=== PATIENT | male | born 2000 | race Caucasian/White ===

== ENCOUNTER 2023-03-27 13:10 | Outpatient (AMB) | payer OTHER, SELFPAY ==
--- NOTE | 2023-03-27 13:32 | AM.OFFWIN_ITS ---
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 Intake Note: pt is here for c.o left ear pain possible cyst Patient Tobacco Use Status: Never used Tobacco Allergies No Known Allergies [No Known Allergies*] Allergy (Verified 03/27/23 13:33) Do you need a note to return to daycare/school/sports/work: Yes HPI HPI Comments History of Present Illness Details Pt presents with L earlobe abscess has been drained in past Pain 08/12 with palpation Ongoing for a few days No other complaints No improving factors PFSH Social History Patient Tobacco Use Status: Never used Tobacco Review of Systems Const Denies chills, Denies fatigue and Denies fever(s) Eyes Denies blurry vision ENT Denies otalgia, Denies nasal discharge, Denies nose pain and Denies sore throat Resp Denies cough Skin/Breast Reports lesions and Reports erythema Endo Denies fatigue Physical Exam Vital Signs: Last Vital Signs Temp 97.9 F 03/27/23 13:53 Pulse 80 03/27/23 13:53 BP 120/76 03/27/23 13:53 Pulse Ox 98 03/27/23 13:53 BMI result Body Mass Index 27.9 General: Non-toxic, NAD. Speaking full sentences. Skin: Warm dry throughout L posterior earlobe + edematous erythematous fluctuant region. No discharge. minimal tenderness to palpation Respiratory: No respiratory distress MSK: Full ROM extremities. Neurology: A/O. No aphasia or facial droop. Gait without abnormality Psych: Good mood and affect Office Procedures Incision and Drainage Incision and drainage performed by: Caridad Norman Informed consent given: Yes Consent signed: No (verbal) Time out checklist: patient, procedure, site marked/identified, positioning of patient (supine), supplies available (lidocaine, 25G and 21G, syringe), allergies confirmed and team agrees on procedure Time out staff in room: No (solo in room) Time out date: 03/27/23 Time out time: 14:20 Location: L posterior earlobe Anesthesia: local Incision with: needle Drainage quality: purulent Probed cavity: No Culture taken: No Lesion: erythema, drainage and fluctuance Dressing: none Patient tolerated procedure: well Complications: No Additional details: verbal consent obtained. L posterior earlobe cleaned with alcohol. 25G needle used to inject approx 1cc lidocaine into region. Pt tolerated well. 21G needle used to aspirate with moderate amount thick white pus expressed. Palpated region with minimal additional discharge. Area cleaned with alcohol and gauze. Pt tolerated well without complication Assessment & Plan Assessment & Plan (1) Abscess: Code(s): L02.91 - Cutaneous abscess, unspecified Plan: Patient seen and evaluated. See proceedure note Bactrim with food; no alcohol F/U with PCP/dermatology Patient gave verbal understanding and had no additional questions or concerns at time of discharge All questions answered Medications: New sulfamethoxazole-trimethoprim 800-160 mg (Bactrim DS) 1 tab PO BID 14 tabs 0RF L02.91 - Cutaneous abscess, unspecified Coding Level of Care Code New Pt Level 3 (59227) Diagnoses Abscess L02.91
[2023-03-27 13:53] VITALS: BP 120/76; PULSE 80; TEMP 36.6; O2SAT 98; BMI 27.9
--- NOTE | 2023-03-27 14:07 | AM.OFFVISNUR ---
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
== END 2023-03-27 14:39 | disposition home or self-care (01) ==
PROVIDERS: PCP Internal Medicine; Visit Provider Physician Assistant
DX: L02.91 Cutaneous abscess, unspecified (principal)
CPT/HCPCS: 99051; 99203

== ENCOUNTER 2023-04-20 12:44 | Outpatient (AMB) | payer OTHER, SELFPAY ==
[2023-04-20 13:05] VITALS: BP 118/72; PULSE 82; O2SAT 99; BMI 27.5
--- NOTE | 2023-04-20 13:05 | MHC.PC.OV ---
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 Allergies No Known Allergies [No Known Allergies*] Allergy (Verified 04/20/23 13:07) Medication List - Last Reconciled 04/20/23 by Jeannette Vences MD No Known Home Meds Tobacco use date assessed: 04/20/23 Dental Screening Dental Screen Date: 04/20/23 Did you have a dental visit in the last 12 months?: Yes Did you have a dental problem in the last 6 months where you did not have access to dental care?: No Was dental information given to patient?: 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 Does smoke marijuana He has a therapist and he can book the appointment whenever he wants it tells me There is a family history of diabetes in mother Lab order placed to be done today. Patient offer no other complaints [facility] Social History Housing: Apartment Patient Tobacco Use Status: Never used Tobacco e-Cigarette/Vaping Use: Never Used service: No Current occupational status: employed Cognitive needs: No Hearing needs: No Vision needs: No Questionnaire PHQ-9 Over the last 2 weeks, how often have you been bothered by any of the following problems? 1. Little interest or pleasure in doing things: several days 2. Feeling down, depressed, or hopeless: more than half the days 3. Trouble falling or staying asleep, or sleeping too much: more than half the days 4. Feeling tired or having little energy: more than half the days 5. Poor appetite or overeating: several days 6. Feeling bad about yourself - or that you are a failure or have let yourself or your family down: nearly every day 7. Trouble concentrating on things, such as reading the newspaper or watching television: several days 8. Moving or speaking so slowly that other people could have noticed. Or the opposite - being so fidgety or restless that you have been moving around a lot more than usual: several days 9. Thoughts that you would be better off or of hurting yourself in some way: several days Total score: 14 Depression Screening Interpretation: Positive Depression Screening Follow-up: Existing condition and Declines treatment Depression Screening Done: Yes 09763 - PHQ-9 Billing: Yes Source: Developed by Drs. Jerrell Miranda, Laya Houston, Tyson Perez and colleagues, with an educational eva from [employer]. Thrive Questionnaire Date Thrive assessed: 04/20/23 I am a: Patient What is your living situation today?: I have a steady place to live Within the past 12 months, did the food you bought not last and you didn't have the money to get more?: Never true Within the past 12 months, did you worry whether your food would run out before you got money to buy more?: Never true Do you have trouble paying for medicines?: No Do you have trouble getting transportation to medical appointments?: No Do you have trouble paying your heating and electricity bill?: No Do you have trouble taking care of your child, family member or friend?: No Do you have trouble with day-to-day activities such as bathing, preparing meals, shopping, managing finances, etc.?: No Are you currently unemployed and looking for a job?: No Are you interested in more education?: Yes Please select the resources that you would like help with: None AUDIT C Alcohol Use Questionnaire (AUDIT-C) 1. How often do you have a drink containing alcohol?: Never 3. How often do you have six or more drinks on one occasion?: Never Total Score: 0 Score Reviewed/Action Taken: Yes ZABRINA-7 AMB Questionnaire ZABRINA-7 Date ZABRINA - 7 assessed: 04/20/23 Feeling nervous, anxious, or on edge: 2 = More than half the days Not being able to stop or control worryin = More than half the days Worrying too much about different things: 2 = More than half the days Trouble relaxin = More than half the days Being so restless that it is hard to sit still: 1 = Several days Becoming easily annoyed or irritable: 1 = Several days Feeling afraid as if something awful might happen: 1 = Several days Total ZABRINA-7 score (0-4 normal; 5-9 mild; 10-14 moderate; 15-21 severe): 11 Source: Developed by Drs. Jerrell Miranda, Laya Houston, Tyson Perez and colleagues, with an educational eva from [employer]. ZABRINA-7 Assessment Billing ZABRINA-7 Assessment Tool: ZABRINA-7 Assessment 22510 Review of Systems Const Denies chills, Denies fever(s) and Denies headache(s) Eyes Denies blurry vision ENT Denies headache(s), Denies nasal discharge, Denies nasal obstruction, Denies odynophagia and Denies sinus pain Card Denies chest pain at rest and Denies chest pain with activity Resp Denies cough and Denies hemoptysis GI Denies diarrhea, Denies odynophagia, Denies vomiting and Denies hematemesis Reports as per HPI Musc Denies abnormal gait Skin/Breast Reports as per HPI Neuro Denies Neuro-related abnormal movements, Denies Abnormal speech present, Denies abnormal gait, Denies headache(s) and Denies Sensory deficit (Neuro) Psych Denies mood swings and Denies paranoia Endo Reports as per HPI Luis/Lymph Reports as per HPI Aller/Immun Reports as per HPI Physical exam (Primary Care) Vital Signs: Last Vital Signs Pulse 82 04/20/23 13:05 BP 118/72 04/20/23 13:05 Pulse Ox 99 04/20/23 13:05 Oxygen Delivery Method Room Air 04/20/23 13:05 BMI result Body Mass Index 27.5 Tobacco/Smoking Status: Tobacco use Status Tobacco use date assessed 04/20/23 04/20/23 13:09 Patient Tobacco Use Status Never used Tobacco 04/20/23 13:08 e-Cigarette/Vaping Use Never Used 04/20/23 13:09 PHQ-9: PHQ-9 Score PHQ-9: Total score 14 04/20/23 13:24 Depression Screening Interpretation: Positive Depression Screening Follow-up: Existing condition and Declines treatment Thrive Assessment: Date of Thrive Assessment Date Thrive assessed 04/20/23 04/20/23 13:09 Const General: cooperative, comfortable and no acute distress Orientation/consciousness: patient oriented x3 [facility] Head: Yes normocephalic and Yes atraumatic Eyes General: appearance normal, both eyes and all related structures Pupils: Equal, round and reactive pupils present EOM: EOMs intact bilaterally Neck Neck: Yes supple and No lymphadenopathy Thyroid: Thyroid normal Lymphatic: no lymphadenopathy noted Resp Effort & Inspection: normal respiratory effort and able to speak in complete sentences Auscultation: clear to auscultation bilaterally Cardio Heart sounds: S1 normal heart sound present and S2 normal heart sound present GI Palpation (GI): Soft to palpation and nontender Auscultation: normal bowel sounds General: Yes no CVA tenderness Back/Spine/Pelvis Back: no CVA tenderness Skin General skin exam: elasticity normal and turgor normal Neuro General: patient oriented x3 and gait normal Cranial nerves: Yes Equal, round and reactive pupils present Speech: No Abnormal speech present Sensory Exam: No Sensory deficit (Neuro) Coordination: tandem gait normal and Romberg test negative Extrem General: Yes normal exam except as noted and No edema Assessment and Plan Assessment & Plan (1) Encounter for general adult medical examination with abnormal findings: Code(s): Z00.01 - Encounter for general adult medical examination with abnormal findings (2) Anxiety, generalized: Code(s): F41.1 - Generalized anxiety disorder (3) Major depression, recurrent: Code(s): F33.9 - Major depressive disorder, recurrent, unspecified Qualifiers: Active/Remission status: in partial remission Qualified Code(s): F33.41 - Major depressive disorder, recurrent, in partial remission (4) Family history of diabetes mellitus: Code(s): Z83.3 - Family history of diabetes mellitus (5) Marijuana smoker: Code(s): F12.90 - Cannabis use, unspecified, uncomplicated Plan 22-year-old male came in for establish care and physical exam Patient have a history of anxiety and depression, he was on Lexapro at 1 time, but then he stops because he does not want to take any medication Patient is in college and feels that it is because of the stress he feels this way. Does smoke marijuana He has a therapist and he can book the appointment whenever he wants it tells me There is a family history of diabetes in mother Lab order placed to be done today. Patient offer no other complaints Orders: Orders Complete Blood Count Auto Diff Today F12.90 - Cannabis use, unspecified, uncomplicated, F33.9 - Major depressive disorder, recurrent, unspecified, F41.1 - Generalized anxiety disorder, Z00.01 - Encounter for general adult medical examination with abnormal findings, Z83.3 - Family history of diabetes mellitus Comprehensive [place]. Panel Fast Today F33.9 - Major depressive disorder, recurrent, unspecified, F41.1 - Generalized anxiety disorder, Z00.01 - Encounter for general adult medical examination with abnormal findings, Z83.3 - Family history of diabetes mellitus Lipid Panel Today F33.9 - Major depressive disorder, recurrent, unspecified, F41.1 - Generalized anxiety disorder, Z00.01 - Encounter for general adult medical examination with abnormal findings, Z83.3 - Family history of diabetes mellitus TSH reflex Free T4 Today F33.9 - Major depressive disorder, recurrent, unspecified, F41.1 - Generalized anxiety disorder, Z00.01 - Encounter for general adult medical examination with abnormal findings, Z83.3 - Family history of diabetes mellitus Coding Level of Care Code New Pt Prev Care 18-39yr([id number] Diagnoses Encounter for general adult medical examination with abnormal findings Z00.01 Anxiety, generalized F41.1 Recurrent major depressive disorder, in partial remission F33.41 Active/Remission status: in partial remission Family history of diabetes mellitus Z83.3 Marijuana smoker F12.90 Additional Codes ZABRINA-7 Assessment Billing - ZABRINA-7 Assessment Tool: ZABRINA-7 Assessment [id number] ([id number])
== END 2023-04-20 13:59 | disposition home or self-care (01) ==
PROVIDERS: PCP Internal Medicine; Visit Provider Internal Medicine
DX: Z00.00 Encounter for general adult medical examination without abnormal findings (principal); F41.1 Generalized anxiety disorder; F33.41 Major depressive disorder, recurrent, in partial remission; Z83.3 Family history of diabetes mellitus; F12.90 Cannabis use, unspecified, uncomplicated
CPT/HCPCS: 99385

== ENCOUNTER 2023-04-20 13:21 | Outpatient (REF) | payer OTHER, SELFPAY ==
[2023-04-20 15:59] LABS: MANUAL DIFF FLAG NO
[2023-04-20 16:04] LABS: Basophils Percent Auto 0.8 % (0-2); Eosinophils Absolute Auto 0.3 X10*3/uL (0.0-0.4); Eosinophils Percent Auto 5.5 % (0-4); Hematocrit 44.8 % (42.0-52.0); Imm Gran Abs Auto 0.01 X10*3/uL (0.00-0.03); Imm Gran Pct Auto 0.2 % (0.0-0.4); Lymphocytes Absolute Auto 1.5 X10*3/uL (1.2-4.9); Lymphocytes Percent Auto 31.2 % (20-40); Mean Corpuscular HGB Conc 33.5 g/dl (31.0-36.0); Mean Corpuscular Hemoglobin 30.5 pg (27.0-33.0); Mean Corpuscular Volume 91.1 fL (80.0-98.0); Monocytes Absolute Auto 0.4 X10*3/uL (0.1-1.2); Monocytes Percent Auto 9.1 % (2-11); Neutrophils Absolute Auto 2.5 x10*3/uL (2.0-8.3); Neutrophils Percent Auto 53.2 % (45-73); Platelet Count 238 X10*3/uL (160-400); Red Blood Count 4.92 X10*6/uL (4.60-5.80); Red Cell Distribution Width 12.5 % (11.0-16.0); White Blood Count 4.7 X10*3/uL (4.8-10.8)
[2023-04-20 16:33] LABS: Alanine Aminotransferase 14 U/L (0-40); Albumin Level 4.6 g/dL (3.5-5.0); Alkaline Phosphatase 40 U/L (39-117); Anion Gap 13 (12-20); Aspartate Amino Transferase 17 U/L (5-37); Bilirubin Total 0.6 mg/dL (0.0-1.0); Blood Urea Nitrogen 11 mg/dL (9-16); Calcium 9.8 mg/dL (8.4-10.2); Carbon Dioxide 26 mmol/L (22-29); Chloride 104 mmol/L (96-108); Cholesterol 178 mg/dL (<200); Estimated Glomerular Filt Rate > 60; Glucose Fasting 95 mg/dL (60-99); HDL Cholesterol 50 mg/dL (>40); LDL Cholesterol Calculated 116 mg/dL (<100); Potassium 3.6 mmol/L (3.3-5.1); Sodium 139 mmol/L (135-145); Total Protein 7.6 g/dL (6.5-8.0); Triglycerides 62 mg/dL (<150)
[2023-04-20 16:45] LABS: TSH reflex Free T4 0.53 uIU/mL (0.32-4.0)
== END 2023-04-20 13:22 | disposition home or self-care (01) ==
LOC: HO.HMGCLDS 13:21
PROVIDERS: PCP Internal Medicine; Visit Provider Internal Medicine
DX: Z00.01 Encounter for general adult medical examination with abnormal findings (principal); F41.1 Generalized anxiety disorder; F33.9 Major depressive disorder, recurrent, unspecified; F12.90 Cannabis use, unspecified, uncomplicated; Z83.3 Family history of diabetes mellitus
CPT/HCPCS: 36415; 80053; 80061; 84443; 85025

== ENCOUNTER 2024-01-26 12:58 | Outpatient (AMB) | payer OTHER, SELFPAY ==
--- NOTE | 2024-01-26 13:09 | A.OFFPC_ITS ---
Vital Signs 3 01/26/24 13:10 Height 5 ft 11 in Weight 201 lb 2 oz BMI 28.0 BP 120/80 Blood Pressure Location Lt brachial Position Sitting Pulse 82 Pulse Source Pulse Oximeter Pulse Oximetry (%) 98 Oxygen Delivery Method Room Air Intake Visit Reasons: Serve Back Pain Allergies No Known Allergies [No Known Allergies*] Allergy (Verified 01/26/24 13:13) Medication List - Last Reconciled 01/26/24 by Jeannette Vences MD No Known Home Meds Tobacco use date assessed: 01/26/24 Dental Screening Dental Screen Date: 01/26/24 Did you have a dental visit in the last 12 months?: Yes Did you have a dental problem in the last 6 months where you did not have access to dental care?: No Was dental information given to patient?: Patient has dentist HPI Serve Back Pain 2 HPI0 Details Patient is 23-year-old gentleman who has been very active in his high school with sports And has many sports related injuries came in to talk about his lower back pain Patient says that initially it used to happen really but now it is constant Also tells me that he is doing weight training in gym On examination patient is slightly sore over left SI joint Range of motion of back is full Spine is nontender to percussion I have placed a referral for him to be evaluated for [place] sports and spine for further management Pain is nonradiating and is worse with activities and better when he is resting [facility] Social History Housing: Apartment Patient Tobacco Use Status: Never used Tobacco e-Cigarette/Vaping Use: Never Used service: No Current occupational status: employed Cognitive needs: No Hearing needs: No Vision needs: No Questionnaire PHQ-9 Over the last 2 weeks, how often have you been bothered by any of the following problems? 1. Little interest or pleasure in doing things: several days 2. Feeling down, depressed, or hopeless: several days 3. Trouble falling or staying asleep, or sleeping too much: several days 4. Feeling tired or having little energy: several days 5. Poor appetite or overeating: not at all 6. Feeling bad about yourself - or that you are a failure or have let yourself or your family down: several days 7. Trouble concentrating on things, such as reading the newspaper or watching television: not at all 8. Moving or speaking so slowly that other people could have noticed. Or the opposite - being so fidgety or restless that you have been moving around a lot more than usual: not at all 9. Thoughts that you would be better off or of hurting yourself in some way: not at all Total score: 5 Depression Screening Interpretation: Negative Depression Screening Done: Yes 16457 - PHQ-9 Billing: Yes Source: Developed by Drs. Jerrell Miranda, Laya Houston, Tyson Perez and colleagues, with an educational eva from [employer]. Thrive Questionnaire Date Thrive assessed: 01/26/24 I am a: Patient What is your living situation today?: I have a steady place to live Within the past 12 months, did the food you bought not last and you didn't have the money to get more?: Never true Within the past 12 months, did you worry whether your food would run out before you got money to buy more?: Sometimes True Do you have trouble paying for medicines?: No Do you have trouble getting transportation to medical appointments?: No Do you have trouble paying your heating and electricity bill?: No Do you have trouble taking care of your child, family member or friend?: No Do you have trouble with day-to-day activities such as bathing, preparing meals, shopping, managing finances, etc.?: No Are you currently unemployed and looking for a job?: No Are you interested in more education?: I choose not to answer this question Please select the resources that you would like help with: None Currently or been in a relationship where the following occur: No concerns reported THRIVE Score: 1 AUDIT C Alcohol Use Questionnaire (AUDIT-C) 1. How often do you have a drink containing alcohol?: 2-4 times a month 2. How many drinks containing alcohol do you have on a typical day when you are drinking?: 3 or 4 3. How often do you have six or more drinks on one occasion?: Monthly Total Score: 5 Score Reviewed/Action Taken: Yes ZABRINA-7 AMB Questionnaire ZABRINA-7 Date ZABRINA - 7 assessed: 01/26/24 Feeling nervous, anxious, or on edge: 1 = Several days Not being able to stop or control worryin = Several days Worrying too much about different things: 2 = More than half the days Trouble relaxin = Several days Being so restless that it is hard to sit still: 1 = Several days Becoming easily annoyed or irritable: 2 = More than half the days Feeling afraid as if something awful might happen: 1 = Several days Total ZABRINA-7 score (0-4 normal; 5-9 mild; 10-14 moderate; 15-21 severe): 9 Source: Developed by Drs. Jerrell Miranda, Laya Houston, Tyson Perez and colleagues, with an educational eva from [employer]. ZABRINA-7 Assessment Billing ZABRINA-7 Assessment Tool: ZABRINA-7 Assessment 22147 Review of Systems Const Denies chills and Denies fever(s) ENT Denies epistaxis and Denies nasal discharge Card Denies chest pain Resp Denies chest congestion, Denies cough and Denies hemoptysis GI Denies diarrhea and Denies nausea Skin/Breast Denies rash Neuro Reports no additional complaints Psych Reports no additional complaints Endo Reports no additional complaints Physical exam (Primary Care) Vital Signs: Last Vital Signs Pulse 82 01/26/24 13:10 BP 120/80 01/26/24 13:10 Pulse Ox 98 01/26/24 13:10 Oxygen Delivery Method Room Air 01/26/24 13:10 BMI result Body Mass Index 28.0 Tobacco/Smoking Status: Tobacco use Status Tobacco use date assessed 01/26/24 01/26/24 13:14 Patient Tobacco Use Status Never used Tobacco 01/26/24 13:10 e-Cigarette/Vaping Use Never Used 01/26/24 13:10 PHQ-9: PHQ-9 Score PHQ-9: Total score 5 01/26/24 13:14 Depression Screening Interpretation: Negative Thrive Assessment: Date of Thrive Assessment Date Thrive assessed 01/26/24 01/26/24 13:14 Currently or been in a relationship where the following occur: No concerns reported Const General: cooperative, comfortable and no acute distress Orientation/consciousness: patient oriented x3 [facility] Head: Yes normocephalic Eyes General: appearance normal, both eyes and all related structures Neck Neck: Yes supple Resp Effort & Inspection: normal respiratory effort, no cough and no stridor Back/Spine/Pelvis Back/spine/pelvis image: 2 1. Slight soreness with deep pressure, range of motion back intact, straight leg negative bilateral, spine nontender to percussion, neuro exam nonfocal Skin General skin exam: turgor normal Neuro General: patient oriented x3, tone normal and moves all extremities Extrem Right lower extremity: no edema Left lower extremity: no edema Coding Level of Care Code Est Pt Level 3 (51993) Diagnoses Chronic left-sided low back pain without sciatica M54.50; G89.29 Back pain laterality: left Sciatica presence: without sciatica Additional Codes ZABRINA-7 Assessment Billing - ZABRINA-7 Assessment Tool: ZABRINA-7 Assessment [id number] ([id number]) Assessment & Plan Assessment & Plan (1) Chronic lumbar pain: Code(s): M54.50 - Low back pain, unspecified; G89.29 - Other chronic pain Category: Medical Qualifiers: Back pain laterality: left Sciatica presence: without sciatica Q ualified Code(s): M54.50 - Low back pain, unspecified; G89.29 - Other chronic pain Plan Patient is 23-year-old gentleman who has been very active in his high school with sports And has many sports related injuries came in to talk about his lower back pain Patient says that initially it used to happen really but now it is constant Also tells me that he is doing weight training in gym On examination patient is slightly sore over left SI joint Range of motion of back is full Spine is nontender to percussion I have placed a referral for him to be evaluated for [place] sports and spine for further management Pain is nonradiating and is worse with activities and better when he is resting Orders: Referrals 2 Pain Management Referral G89.29 - Other chronic pain, M54.50 - Low back pain, unspecified
[2024-01-26 13:10] VITALS: BP 120/80; PULSE 82; O2SAT 98; BMI 28.0
== END 2024-01-26 13:26 | disposition home or self-care (01) ==
PROVIDERS: PCP Internal Medicine; Visit Provider Internal Medicine
DX: M54.50 Low back pain, unspecified (principal); G89.29 Other chronic pain

== ENCOUNTER → 2024-01-26 12:58 | Outpatient (BNVA) | payer OTHER, SELFPAY | PROVIDERS: PCP Internal Medicine; Visit Provider Internal Medicine | DX: M54.50 Low back pain, unspecified (principal); G89.29 Other chronic pain | CPT/HCPCS: 96127; 99212 ==

== ENCOUNTER 2025-01-09 13:49 | Outpatient (AMB) | payer BC, SELFPAY ==
[2025-01-09 14:09] VITALS: BP 118/80; PULSE 82; O2SAT 99; BMI 27.1
--- NOTE | 2025-01-09 14:09 | A.OFFPC_ITS ---
Vital Signs 01/09/25 14:09 Height 5 ft 11 in Weight 194 lb BMI 27.1 BP 118/80 Blood Pressure Location Lt brachial Position Sitting Pulse 82 Pulse Source Pulse Oximeter Pulse Oximetry (%) 99 Intake Visit Reasons: Annual PE Allergies No Known Allergies (No Known Allergies*) Allergy (Verified 01/26/24 13:13) Medication List - Last Reconciled 01/09/25 by Jeannette Vences MD No Known Home Meds Tobacco use date assessed: 01/09/25 Dental Screening Dental Screen Date: 01/09/25 Did you have a dental visit in the last 12 months?: No Did you have a dental problem in the last 6 months where you did not have access to dental care?: No Was dental information given to patient?: Patient declined HPI Annual PE HPI Details PE The patient is a 24-year-old male presenting with hand and elbow pain. Ulnar nerve compression: - Reports experiencing soreness and gilberto p zap-like pain in the the pinky finger left hand for the past couple of weeks. - Describes pain occurring during activi ties such as picking up objects or opening doors. - Pain seems to improve at rest; however , described as sporadic when engaged in certain actions. - Patient frequently rests elbows on shreya d surfaces, potentially exacerbating nerve pressure. 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 Indicates relatively active roles yet mentions occasional heavy lifting. - Level of activity: Describes being act renay and mobile throughout the workday, but resting when at home. Health Maintenance - Vaccinations: Flu vaccine Plans to [facility]. - Recent labs reviewed: Prior labs perfo rmed last year, with a slightly low white count noted but otherwise normal. Medications: None Patient Instructions - Avoid placing pressure on the elbows, such as resting them on hard surfaces. - Monitor the symptoms and return if alva n or other issues worsen. Follow-up 1 year physical exam Review of Systems - General: No fever no chills - Neurological: No headaches no dizzin ess - Ear nose throat: No sore throat no hearing difficulty no ear pain - Cardiovascular: No syncope, no chest pain, no palpitations - Gastrointestinal: No nausea vomiting or diarrhea - Endocrine: No polyuria polydipsia no heat intolerance - Genitourinary: No dysuria - Skin: No new complaints Physical Exam General: Cooperative, healthy appearing, comfortable, no acute distress Orientation: Patient oriented x3 Limitations: None Head: Normal to inspection Ears: Within normal limit visually Nose: Normal external nose present Face and sinus: Normal facial exam Eyes: Appearance normal, extraocular movement intact pupils reactive Neck: Normal visual inspection and supple Respiratory: Normal respiratory effort and able to speak in complete sentences. Clear to auscultation, no stridor Cardiovascular: S1 and S2 RRR GI: Normal to inspection. Soft to palpation and nontender Skin: Turgor normal, no acute findings Neuro: Patient oriented x3, motor sensory intact, balance intact, tandem pass Extremities: Normal to inspection, full range of motion without pain . [facility] Surgical History S/P wisdom tooth extraction Family History Mother Pre-diabetes Father No problems noted. Social History Housing: Apartment Patient Tobacco Use Status: Never used Tobacco e-Cigarette/Vaping Use: Never Used service: No Current occupational status: employed Cognitive needs: No Hearing needs: No Vision needs: No Questionnaire PHQ-9 Over the last 2 weeks, how often have you been bothered by any of the following problems? 1. Little interest or pleasure in doing things: not at all 2. Feeling down, depressed, or hopeless: not at all 3. Trouble falling or staying asleep, or sleeping too much: several days 4. Feeling tired or having little energy: not at all 5. Poor appetite or overeating: not at all 6. Feeling bad about yourself - or that you are a failure or have let yourself or your family down: not at all 7. Trouble concentrating on things, such as reading the newspaper or watching television: several days 8. Moving or speaking so slowly that other people could have noticed. Or the opposite - being so fidgety or restless that you have been moving around a lot more than usual: not at all 9. Thoughts that you would be better off or of hurting yourself in some way: not at all Total score: 2 Depression Screening Interpretation: Negative Depression Screening Done: Yes 76958 - PHQ-9 Billing: Yes Source: Developed by Drs. Jerrell Miranda, Laya Houston, Tyson Perez and colleagues, with an educational eva from [employer]. Thrive Questionnaire Date Thrive assessed: 01/09/25 I am a: Patient What is your living situation today?: I have a steady place to live Within the past 12 months, did the food you bought not last and you didn't have the money to get more?: Never true Within the past 12 months, did you worry whether your food would run out before you got money to buy more?: Never true Do you have trouble paying for medicines?: No Do you have trouble getting transportation to medical appointments?: No Do you have trouble paying your heating and electricity bill?: No Do you have trouble taking care of your child, family member or friend?: No Do you have trouble with day-to-day activities such as bathing, preparing meals, shopping, managing finances, etc.?: No Are you currently unemployed and looking for a job?: No Are you interested in more education?: Yes Please select the resources that you would like help with: Education Currently or been in a relationship where the following occur: No concerns reported THRIVE Score: 0 AUDIT C Alcohol Use Questionnaire (AUDIT-C) 1. How often do you have a drink containing alcohol?: 2-4 times a month 2. How many drinks containing alcohol do you have on a typical day when you are drinking?: 5 or 6 3. How often do you have six or more drinks on one occasion?: Monthly Total Score: 6 Score Reviewed/Action Taken: Yes ZABRINA-7 AMB Questionnaire ZABRINA-7 Date ZABRINA - 7 assessed: 01/09/25 Feeling nervous, anxious, or on edge: 1 = Several days Not being able to stop or control worryin = Several days Worrying too much about different things: 1 = Several days Trouble relaxin = Not at all Being so restless that it is hard to sit still: 0 = Not at all Becoming easily annoyed or irritable: 1 = Several days Feeling afraid as if something awful might happen: 0 = Not at all Total ZABRINA-7 score (0-4 normal; 5-9 mild; 10-14 moderate; 15-21 severe): 4 Source: Developed by Drs. Jerrell Miranda, Laya Houston, Tyson Perez and colleagues, with an educational eva from [employer]. ZABRINA-7 Assessment Billing ZABRINA-7 Assessment Tool: ZABRINA-7 Assessment 19187 Physical exam (Primary Care) Vital Signs: Last Vital Signs Pulse 82 01/09/25 14:09 BP 118/80 01/09/25 14:09 Pulse Ox 99 01/09/25 14:09 BMI result Body Mass Index 27.1 Tobacco/Smoking Status: Tobacco use Status Tobacco use date assessed 01/09/25 01/09/25 14:13 Patient Tobacco Use Status Never used Tobacco 01/09/25 14:13 e-Cigarette/Vaping Use Never Used 01/09/25 14:13 PHQ-9: PHQ-9 Score PHQ-9: Total score 2 01/09/25 14:13 Depression Screening Interpretation: Negative Thrive Assessment: Date of Thrive Assessment Date Thrive assessed 01/09/25 01/09/25 14:13 Currently or been in a relationship where the following occur: No concerns reported Coding Level of Care Code Est Pt Level 3 (95476) Est Pt Prev Care 18-39y(54777) Diagnoses Encounter for general adult medical examination with abnormal findings Z00.01 Ulnar neuropathy at elbow of left upper extremity G56.22 Additional Codes ZABRINA-7 Assessment Billing - ZABRINA-7 Assessment Tool: ZABRINA-7 Assessment 17917 ([id number]) PHQ-9 - 49493 - PHQ-9 Billing: Yes ([id number]) Assessment & Plan Assessment & Plan (1) Encounter for general adult medical examination with abnormal findings: Code(s): Z00.01 - Encounter for general adult medical examination with abnormal findings Category: Medical (2) Ulnar neuropathy at elbow of left upper extremity: Code(s): G56.22 - Lesion of ulnar nerve, left upper limb Category: Medical Plan PE The patient is a 24-year-old male presenting with hand and elbow pain. Ulnar nerve compression: - Reports experiencing soreness and sharp zap-like pain in the the pinky finger left hand for the past couple of weeks. - Describes pain occurring during activities such as picking up objects or opening doors. - Pain seems to improve at rest; however, described as sporadic when engaged in certain actions. - Patient frequently rests elbows on hard surfaces, potentially exacerbating nerve pressure. 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 Indicates relatively active roles yet mentions occasional heavy lifting. - Level of activity: Describes being active and mobile throughout the workday, but resting when at home. Health Maintenance - Vaccinations: Flu vaccine Plans to schedule at [facility]. - Recent labs reviewed: Prior labs performed last year, with a slightly low white count noted but otherwise normal. Medications: None Patient Instructions - Avoid placing pressure on the elbows, such as resting them on hard surfaces. - Monitor the symptoms and return if pain or other issues worsen. Follow-up 1 year physical exam .
--- OUTSIDE RECORDS SUMMARY | 2025-01-09 17:02 | XMS_ITS ---
Author Name [facility] Organization Unknown Care Team Organization Name Specialty Phone Email Start Date End [facility] 12/19/2024
--- OUTSIDE RECORDS SUMMARY | 2025-01-09 17:02 | XMS_ITS | Clinical Summary ---
Author Organization [employer] [facility] ity Address [address] [place] [address] Care Team Providers Care Lift Slab Operator Name Role Phone Unavailable Primary Care Provider Unavailabl e Social History Tobacco Use Types Packs/Day Years Used Date Smoking Tobacco: Never Assessed Sex and Gender Information Value Date Recorded Sex Assigned at Not on file Legal Sex Male 1:59 PM EST Gender Identity Not on file Sexual Orientation Not on file Plan of Treatment Health Maintenance Due Date Last Done Comments HPV Vaccines (1 - Male 3-dos e series) 2017 Meningococcal B Vaccine (1 o f 2 - Standard) 2018 DTaP,Tdap,and Td Vaccines (1 - Tdap) 2021 Hepatitis B Vaccines (1 of 3 - 19+ 3-dose series) 2021 Depression Screening 04/05/2024 COVID-19 Vaccine (1 - 2023-2 5 season) 2024 Influenza Vaccine (#1) 2024 RSV Immunization Adult Patie nts (1 - 1-dose 75+ series) 2077 HIB Vaccines Aged Out No longer eligi ble based on patient's age to complete this topic Hepatitis A Vaccines Aged Out No long er eligible based on patient's age to complete this topic IPV Vaccines Aged Out No longer eligi ble based on patient's age to complete this topic MMR Vaccines Aged Out No longer eligi ble based on patient's age to complete this topic Meningococcal ACWY Vaccine Aged Out N o longer eligible based on patient's age to complete this topic Pneumococcal Vaccine: Pediat rics (0 to 5 Years) and At-Risk Patients (6 to 49 Years) Aged Out No longer eligible b ased on patient's age to complete this topic RSV Immunization Patients Un lucy 20 months Aged Out No longer eligible b ased on patient's age to complete this topic Varicella Vaccines Aged Out No longer eligible based on patient's age to complete this topic
--- OUTSIDE RECORDS SUMMARY | 2025-01-09 17:02 | XMS_ITS | Patient Health Record ---
[facility] Organization [facility] Address [address] [place] [address] Care Team Providers Care Honey Processor Name Role Phone Daxa Regalado Primary Care Provider Norberto Coleman Unavailable [phone] Allergies Allergen (clinical drug ingredient) Drug/Non Drug Allergy documented on EMR Reaction Allergy Type Onset Date Status enviromental allergi es (uncoded) Unknown Allergy Active Reason For Referral No Information Medications Medication SIG (Take, Route, Fr equency, Duration) Notes Start Date End Date Status Loratadine 5 MG Orally PRN Acti ve School Note . . . Pt was seen in [facility] today; Duration: . 12/21/2016 Active Social History Tobacco Use: Social History Observation Description Date Details (start date - stop date) Never Smoker NA - NA Tobacco Use/Smoking Question Answer Notes Are you a: nonsmoker Additional Findings: Tobacco Non-User Current no n-smoker Alcohol Screen Question Answer Notes Did you have a drink containing alcohol in the p ast year? No Points 0 Interpretation Negative Tobacco use other than smoking: Question Answer Notes Are you an other tobacco user? No Plan Of Treatment No Information Insurance Providers Payer Name Payer Address Payer Phone Subscriber Number Group Number Insured Name Patient Relationship to Insured Coverage Start Date Coverage End Date [facility] Health Plan [address] [place] [id number] Serena Vincent Self - patient is the insured
--- OUTSIDE RECORDS SUMMARY | 2025-01-09 17:02 | XMS_ITS | Encounter Summary ---
Author Organization [facility] Address [address] [place] [address] Phone Care Team Providers Care Food Services Coordinator Name Role Phone Jeannette Vences MD Primary Care Provider [phone] Encounter Details Date Type Department Care Team (Late st Contact Info) Description 04/18/2020 Transcribe Orders Virtual Department [address] [place] [id number] Pauly Houston PA [address] [place] [address] [address] [place] [address] Exposure to SARS-associated coronavirus (Primary Dx) Social History Tobacco Use Types Packs/Day Years Used Date Smoking Tobacco: Never Assessed Sex and Gender Information Value Date Recorded Sex Assigned at Not on file Legal Sex Male 3:00 PM EST Gender Identity Not on file Sexual Orientation Not on file documented as of this encounter Plan of Treatment Not on file documented as of this encounter Results * COVID-19 PCR Order (04/18/2020 3:33 PM EST) COVID Testing Status In-house testing being performed [facility] Symptomatic? NO [facility] Other 04/18/2020 3:33 PM EST 04/18/2020 6:17 PM EST us Pauly BACK BODY FLUIDS AND STOOLS ORD ERABLES Final Result [facility] [address] [place] [address] documented in this encounter Visit Diagnoses Diagnosis Exposure to SARS-associated coronavirus- Primary documented in this encounter Care Teams Food Services Coordinator Relationship Specialty Start Date End Date Jeannette Vences MD [facility] [place] [address] PCP - General 04/16/21 documented as of this encounter Additional Source Comments The information contained in this document represents components of the legal health record. It is not the complete legal health record.[facility]
--- OUTSIDE RECORDS SUMMARY | 2025-01-09 17:02 | XMS_ITS | Clinical Summary ---
Author Organization [facility] Address [address] [address] Phone Care Team Providers Care Director Of Field Coordination Name Role Phone Jeannette Vences MD Primary Care Provider [phone] Immunizations Immunization Administration Dates Next Due COVID-19 (Pre-01/25) Pfizer Vaccine, mRNA, PF 04/16/2021,07/14/2020 HPV,quadrivalent 09/03/2015 Influenza Quadrivalent Preservative Free IM 02/04,02/25/2019,05/03/2018 Meningococcal MCV4P 11/08/2018 Social History Tobacco Use Types Packs/Day Years Used Date Smoking Tobacco: Never Assessed Education Answer Date Recorded Are you interested in more education? Not on patricia e 07/31/2022 Are you concerned about learning? Not on file 07/31/2022 No 07/31/2022 No 07/31/2022 Digital Access Answer Date Recorded No 08/29/2022 No 08/29/2022 No 08/29/2022 Reliable internet access at home? Not on file 08/29/2022 Device with a working camera? Not on file Sex and Gender Information Value Date Recorded Sex Assigned at Not on file Legal Sex Male 3:00 PM EST Gender Identity Not on file Sexual Orientation Not on file Plan of Treatment Health Maintenance Due Date Last Done Comments Adult Td,Tdap Booster 2002 DEPRESSION SCREENING 2014 SMOKING Hx and SMOKELESS TOBACCO SCREENING 2015 HPV VACCINES (2 - Male 2-dose series) 03/04/2016 09/03/2015 MENINGOCOCCAL VACCINES (B) (1 of 2 - Standard) 2018 HEPATITIS C SCREENING 2020 HIV ONE-TIME SCREENING (18-65 YEARS) 2020 INFLUENZA VACCINE (#1) 2024 0, 02/25/2019, 05/03/2018, Additional history exists COVID-19 VACCINE (2024- season) 2024 04/16/2021, 08/05/2020, 07/14/2020 MENINGOCOCCAL VACCINES (ACWY) Completed 11/08/2018 HEPATITIS A VACCINES Aged Out No long er eligible based on patient's age to complete this topic HIB VACCINES Aged Out No longer eligi ble based on patient's age to complete this topic PNEUMOCOCCAL VACCINES (0-49 years) Aged Out No longer eligible based on patient's age to complete this topic Medical Devices Not on file Insurance HEALTH PLAN [facility] PLAN HEALTH PLAN PLAN HEALTH PLAN HEALTH PLAN FAMILY HEALTH PLAN HEALTH PLAN PLAN FAMILY HEALTH [place] [address] [place] [address] HEALTH PLAN PLAN PLAN PLAN HEALTH PLAN [facility] HEALTH PLAN Care Teams Director Of Field Coordination Relationship Specialty Start Date End Date Jeannette Vences MD [address] [place] [address] PCP - General 04/16/21 Additional Source Comments The information contained in this document represents components of the legal health record. It is not the complete legal health record.[facility]
== END 2025-01-09 14:25 | disposition home or self-care (01) ==
PROVIDERS: PCP Internal Medicine; Visit Provider Internal Medicine
DX: Z00.01 Encounter for general adult medical examination with abnormal findings (principal); G56.22 Lesion of ulnar nerve, left upper limb

== ENCOUNTER → 2025-01-09 13:49 | Outpatient (BNVA) | payer BC, SELFPAY | PROVIDERS: PCP Internal Medicine; Visit Provider Internal Medicine | DX: Z00.01 Encounter for general adult medical examination with abnormal findings (principal); G56.22 Lesion of ulnar nerve, left upper limb | CPT/HCPCS: 96127 ==